=== PATIENT | female | born 1970 | race Caucasian/White ===

== ENCOUNTER 2020-10-27 11:40 | Day surgery (SDC) | payer OTHER ==
[2020-10-25 17:56] VITALS: BMI 40.6
[2020-10-27] MEDS ORDERED: PROPOFOL 20 ML ONE (13:04)
[2020-10-27 13:39] VITALS: PULSE 80
[2020-10-27 13:59] VITALS: BP 110/65; TEMP 98
== END 2020-10-27 14:00 | disposition home or self-care (01) ==
LOC: FASU-ENDO 11:40
PROVIDERS: ATTEND Internal Medicine Gastroenterology
PROC: 0DJD8ZZ Inspection of Lower Intestinal Tract, Via Natural or Artificial Opening Endoscopic (ICD-10-PCS; principal; 2020-10-27 13:01)
DX: Z12.11 Encounter for screening for malignant neoplasm of colon (principal); K64.1 Second degree hemorrhoids; K57.30 Diverticulosis of large intestine without perforation or abscess without bleeding
CPT/HCPCS: 82962